=== PATIENT | female | born 1995 | race Caucasian/White ===

== ENCOUNTER 2024-03-31 09:40 | Outpatient (CLI) | payer MEDICAID, SELFPAY | END 2024-03-31 09:41 | disposition home or self-care (01) | PROVIDERS: Visit Provider Family Medicine | DX: O20.9 Hemorrhage in early pregnancy, unspecified (principal) | CPT/HCPCS: 84702 ==

== ENCOUNTER 2024-04-01 15:29 | Oncology outpatient (recurring) (ONCR) | payer MEDICAID, SELFPAY ==
--- NOTE | 2024-04-01 08:39 | PC.NURSE ---
Called [facility], spoke with Gallito regarding need for clear orders and blood type in order to adminster Rhogam shot as requested. Gallito spoke with Dr Patterson's nurse who indicated that the patient did not need the rhogam shot now as she had passed her window for the shot to be given. Information was relayed to the patient who was going to follow up with Dr Patterson.
[2024-04-01] MEDS: rho(d) immune globulin 1,500 unit Syringe 1500 UNIT IM (16:05)
--- NOTE | 2024-04-01 16:10 | PC.NURSE ---
Patients blood type/RH status verified with Ania Okeefe RN prior to administering.
== END 2024-04-10 23:59 | disposition home or self-care (01) ==
PROVIDERS: Visit Provider Family Medicine
DX: Z67.11 Type A blood, Rh negative (principal); Z79.899 Other long term (current) drug therapy; Z53.9 Procedure and treatment not carried out, unspecified reason
CPT/HCPCS: 96372; J2790

== ENCOUNTER 2024-09-29 15:34 | Outpatient (CLI) | payer MEDICAID, SELFPAY | END 2024-09-29 15:35 | disposition home or self-care (01) | LOC: SLEEP 15:37 | PROVIDERS: Referring Provider Family Medicine; Visit Provider Internal Medicine Pulmonary Disease | DX: G47.33 Obstructive sleep apnea (adult) (pediatric) (principal) | CPT/HCPCS: G0399 ==